=== PATIENT | male | born 1995 | race African-American/Black ===

== ENCOUNTER → 2019-05-22 | Outpatient (CLI) | payer OTHER ==
[~2019-05-22] MED LIST: NOCURR
== END | disposition home or self-care (01) ==
LOC: PUC 12:31
DX: R07.0 Pain in throat (principal)
CPT/HCPCS: 87430

== ENCOUNTER 2022-04-25 13:19 | Emergency (ER) | payer OTHER ==
[~2022-04-25] VITALS: Ht 177.8 cm; Wt 75.0 kg
[2022-04-25] MEDS ORDERED: ACETAMINOPHEN 500 MG TABLET PO ONE (13:30)
[2022-04-25 14:09] LABS: BASOPHILS % (AUTO) 0.8 % (0.0-2.0); EOSINOPHILS % (AUTO) 0.7 % (1.0-6.0); HEMATOCRIT 45.1 % (41-53); HEMOGLOBIN 15.1 g/dL (13.5-17.5); LYMPHOCYTES # (AUTO) 1.5 K/uL (1.0-4.8); LYMPHOCYTES % (AUTO) 20.3 % (22.0-44.0); MEAN CORPUSCULAR HEMOGLOBIN 30.3 pg (26.0-34.0); MEAN CORPUSCULAR HGB CONC 33.5 G/dL (31.0-37.0); MEAN CORPUSCULAR VOLUME 90 fL (80-100); MONOCYTES # (AUTO) 0.6 K/uL (0.1-1.0); MONOCYTES % (AUTO) 8.2 % (2.0-9.0); NEUTROPHILS # (AUTO) 5.2 K/uL (1.8-7.7); PLATELET COUNT (AUTO) 235 K/uL (150-450); RED CELL DISTRIBUTION WIDTH 12.9 % (11.5-14.5)
[2022-04-25 14:21] LABS: ANION GAP 8 mmol/L (8-16); CALCIUM, TOTAL 9.7 mg/dL (8.8-10.5); CARBON DIOXIDE 29 mmol/L (22-29); CHLORIDE 104 mmol/L (98-107); CREATININE 1.06 mg/dL (0.60-1.30); GLOMERULAR FILTR. RATE CALC > 60 mL/min (>60); GLUCOSE,RANDOM 107 mg/dL (70-110); POTASSIUM 3.9 mmol/L (3.5-5.1); SODIUM SERUM 141 mmol/L (136-145); UREA NITROGEN, BLOOD 11 mg/dL (7-18)
[2022-04-25 14:27] LABS: ALANINE AMINOTRANSFERASE 17 U/L (12-78); ALBUMIN 4.7 g/dL (3.4-5.0); ALKALINE PHOSPHATASE 33 U/L (46-116); ASPARTATE AMINOTRANSFERASE 23 U/L (15-37); TOTAL PROTEIN, SERUM 8.2 g/dL (6.4-8.2)
[2022-04-25 14:46] LABS: COVID AG,FIA SOURCE NASOPHARYNGEAL
[2022-04-25 15:43] VITALS: BP 119/73
== END 2022-04-25 16:48 | disposition home or self-care (01) ==
LOC: EMS 13:22
DX: R42 Dizziness and giddiness (principal); R53.1 Weakness; F90.9 Attention-deficit hyperactivity disorder, unspecified type; Z20.822 Contact with and (suspected) exposure to COVID-19
CPT/HCPCS: 80053; 85025; 99283

== ENCOUNTER 2022-12-23 18:20 | Emergency (ER) | payer SELFPAY ==
[~2022-12-23] VITALS: Ht 177.8 cm; Wt 77.3 kg
[2022-12-23 20:04] LABS: COVID AG,FIA SOURCE NASAL SWAB
[2022-12-23 20:25] LABS: SARS-COV2 (COVID) ANTIGEN,FIA Negative (Negative)
[2022-12-23] MEDS ORDERED: IBUPROFEN 400 MG TABLET PO ONE (20:45)
[2022-12-23] MEDS ORDERED: PredniSONE 20 MG TABLET PO ONE (20:45)
[2022-12-23] MEDS ORDERED: AMOX500C2 PO (21:57)
[2022-12-23] MEDS ORDERED: AMOXICILLIN TRIHYDRATE 250 MG CAPSULE PO ONE (22:00)
[2022-12-23 22:32] VITALS: BP 133/68; PULSE 75; RESP 16; TEMP 98
== END 2022-12-23 22:35 | disposition home or self-care (01) ==
LOC: EMS 18:20
DX: J03.90 Acute tonsillitis, unspecified (principal); F12.90 Cannabis use, unspecified, uncomplicated; Z20.822 Contact with and (suspected) exposure to COVID-19
CPT/HCPCS: 99284; 87426; 86308; 87430; 36415; J7512

== ENCOUNTER 2022-12-27 17:25 | Emergency (ER) | payer SELFPAY ==
[~2022-12-27] VITALS: Ht 175.3 cm; Wt 72.7 kg
[~2022-12-27 17:25] MED LIST changes: +AMOX500C2 PO; -NOCURR
[2022-12-27 17:38] VITALS: TEMP 97.8
[2022-12-27] MEDS ORDERED: TraMADol HCL 50 MG TABLET PO ONE (21:00)
[2022-12-27 21:38] VITALS: BP 133/78; PULSE 81; RESP 19
== END 2022-12-27 21:50 | disposition home or self-care (01) ==
LOC: EMS 17:26
DX: S90.31XA Contusion of right foot, initial encounter (principal); S60.221A Contusion of right hand, initial encounter; F12.90 Cannabis use, unspecified, uncomplicated; X58.XXXA Exposure to other specified factors, initial encounter; Y93.89 Activity, other specified; Y92.89 Other specified places as the place of occurrence of the external cause; Y99.8 Other external cause status
CPT/HCPCS: 99284; 73130-TC; 73630-TC; Z7502; Z7610